=== PATIENT | female | born 1960 | race Caucasian/White ===

== ENCOUNTER 2016-12-09 07:09 | Day surgery (SDC) | payer BC ==
--- NOTE | ~2016-12-09 | EGD ---
EGD REPORT [facility] [address] [place] [place] [id number] NAME: YAMILEX VELA : 56 STATUS : REG [facility]#: [id number] AGE: 56 ADM/REG DATE : 12/09/16 MR#: [id number] REPORT SERV DATE: 12/09/16 DICTATED BY: NENITA MENCHACA DATE: 12/09/16 REPORT STATUS : Draft TRANSCRIBED BY: [facility] DATE: 12/09/16 Endoscopy Center Patient Name: Yamilex Vela Date of : 1960 Attending MD: NENITA MENCHACA MD Procedure Date No Time: 12/09/2016 Procedure: Colonoscopy Indications: High risk colon cancer surveillance: Personal history of colonic polyps, FH of Colon Cancer -distant relative, FH of Colonic Polyps - 1st degree relative Referring MD: JANET MEZA Medicines: as per anesthesia Complications: No immediate complications. Procedure: Pre-Anesthesia Assessment: - ASA Grade Assessment: II - A patient with mild systemic disease. After I obtained informed consent, the scope was passed under direct vision. Throughout the procedure, the patient's blood pressure, pulse, and oxygen saturations were monitored continuously. The PCF [id number] was introduced through the anus and advanced to the cecum, identified by appendiceal orifice and ileocecal valve. The colonoscopy was somewhat difficult due to a tortuous colon. The patient tolerated the procedure. The quality of the bowel preparation was adequate to identify polyps. Findings: The perianal and digital rectal examinations were normal. A few small and large-mouthed diverticula were found in the sigmoid colon. Internal hemorrhoids were found during endoscopy and were mild. Impression: - Diverticulosis in the sigmoid colon. - Internal hemorrhoids. Recommendation: - Repeat colonoscopy in 5 years for surveillance. Procedure Code(s): --- Professional --- 66398, Colonoscopy, flexible, proximal to splenic flexure; diagnostic, with or without collection of specimen(s) by brushing or washing, with or without colon decompression (separate procedure) Diagnosis Code(s): --- Professional --- K64.8, Other hemorrhoids EGD REPORT [facility] [address] [id number] NAME: YAMILEX VELA : 56 STATUS : REG [facility] [place] [place] PAT#: [id number] AGE: 56 ADM/REG DATE : 12/09/16 MR#: [id number] REPORT SERV DATE: 12/09/16 DICTATED BY: NENITA MENCHACA DATE: 12/09/16 REPORT STATUS : Draft TRANSCRIBED BY: [employer] DATE: 12/09/16 K57.30, Diverticulosis of large intestine without perforation or abscess without bleeding Z86.010, Personal history of colonic polyps Z80.0, Family history of malignant neoplasm of digestive organs Z83.71, Family history of colonic polyps CPT copyright 2013 [employer]. All rights reserved. The codes documented in this report are preliminary and upon cold rolling coordinator review may be revised to meet current compliance requirements. NENITA MENCHACA MD 12/09/2016 9:14 AM This report has been signed electronically. Number of Addenda: 0 Note Initiated On: 12/09/2016 8:41 AM Scope Withdrawal Time 0 hours 9 minutes 46 seconds [address] [facility] [place] [id number]
[~2016-12-09 07:09] MED LIST: ATACAND32 MG PO; CALTRA600D PO; CINNAMONPO; DORYX100 MG PO; GLUCPH PO; INDAPAMIDE1.25 MG PO; NEXIUM40 PO; NORV5 PO; SYN112 PO; ZOL100 PO
== END 2016-12-09 23:59 | disposition home or self-care (01) ==
LOC: DMU 07:09
PROVIDERS: Internal Medicine Gastroenterology
PROC: 0DJD8ZZ Inspection of Lower Intestinal Tract, Via Natural or Artificial Opening Endoscopic (ICD-10-PCS; principal; 2016-12-09 08:30)
DX: Z12.11 Encounter for screening for malignant neoplasm of colon (principal); K57.30 Diverticulosis of large intestine without perforation or abscess without bleeding; K64.8 Other hemorrhoids; K58.9 Irritable bowel syndrome, unspecified; K21.9 Gastro-esophageal reflux disease without esophagitis; K57.90 Diverticulosis of intestine, part unspecified, without perforation or abscess without bleeding; I10 Essential (primary) hypertension; E11.9 Type 2 diabetes mellitus without complications; E03.9 Hypothyroidism, unspecified; F41.9 Anxiety disorder, unspecified; F32.9 Major depressive disorder, single episode, unspecified; Z86.010 Personal history of colon polyps; Z85.850 Personal history of malignant neoplasm of thyroid; Z80.0 Family history of malignant neoplasm of digestive organs; Z88.0 Allergy status to penicillin; Z88.2 Allergy status to sulfonamides; Z91.040 Latex allergy status; Z90.49 Acquired absence of other specified parts of digestive tract; Z90.710 Acquired absence of both cervix and uterus; Z90.89 Acquired absence of other organs; Z79.84 Long term (current) use of oral hypoglycemic drugs; Z79.2 Long term (current) use of antibiotics; Z79.899 Other long term (current) drug therapy; Z98.890 Other specified postprocedural states
CPT/HCPCS: 82962